=== PATIENT | male | born 1950 | race Caucasian/White ===

== ENCOUNTER 2021-10-17 09:33 | Outpatient (CLI) | payer MEDICARE, OTHER | END 2021-10-17 09:34 | disposition home or self-care (01) | LOC: MADRAD 09:33 | PROVIDERS: ATTEND Physician Assistant | DX: S69.91XA Unspecified injury of right wrist, hand and finger(s), initial encounter (principal); M19.041 Primary osteoarthritis, right hand; M89.9 Disorder of bone, unspecified; M34.9 Systemic sclerosis, unspecified ==

== ENCOUNTER 2022-12-27 19:35 | Emergency (ER) | payer MEDICARE ==
[2022-12-27] MEDS ORDERED: cloNIDine 0.1 MG TAB ONE ×2 (20:28→21:23)
== END 2022-12-27 21:44 | disposition home or self-care (01) ==
LOC: MADERS 19:35
DX: I10 Essential (primary) hypertension (principal)
CPT/HCPCS: 99283

== ENCOUNTER 2023-11-11 09:27 | Emergency (ER) | payer MEDICARE ==
[~2023-11-11 09:27] MED LIST: Iopamidol 370 76% 100 ML VIAL ONE
[2023-11-11] MEDS ORDERED: Prochlorperazine 10 MG/2 ML VIAL ONE (10:09)
[2023-11-11] MEDS ORDERED: Meclizine HCl 25 MG TAB ONE (10:09)
[2023-11-11] MEDS ORDERED: Lactated Ringer's 1,000 ML ONE (10:09)
[2023-11-11 10:20] LABS: INR-International Normal Ratio 1.1; PTT 25.8 sec (22.9-36.1); Prothrombin Time 14.3 sec (12.0-14.7)
[2023-11-11 10:28] LABS: ALT (SGPT) 10 U/L (8-55); AST (SGOT) 12 U/L (5-34); Albumin 3.4 g/dL (3.4-4.8); Alkaline Phosphatase 93 U/L (40-110); Anion Gap 14 mmol/L (10-20); BUN (Urea Nitrogen) 26 mg/dL (8.4-25.7); Bilirubin, Total 0.4 mg/dL (0.2-1.2); CK (CPK) 76 U/L (30-200); Calc. Creatinine Clearance 0 mL/min (70-130); Calcium 8.5 mg/dL (7.8-10.44); Carbon Dioxide 21 mmol/L (23-31); Chloride 109 mmol/L (98-107); Estimated GFR 43; Globulin 2.8 g/dL (2.4-3.5); Glucose 138 mg/dL (83-110); Hematocrit 43.2 % (42.0-52.0); Hemoglobin 13.7 g/dL (14.0-18.0); Mean Corpuscular HGB CONC 31.8 g/dL (32.0-36.0); Mean Corpuscular Hemoglobin 30.9 pg (27.0-31.0); Mean Corpuscular Volume 97.1 fl (78.0-98.0); Mean Platelet Volume 7.8 fL (7.4-10.4); Platelet Count 206 10x3/uL (130-400); Potassium 4.1 mmol/L (3.5-5.1); Protein, Total 6.2 g/dL (5.8-8.1); RBC Distribution Width 12.2 % (11.5-14.5); Red Blood Cell (RBC) Count 4.45 mill/uL (4.70-6.10); Sodium 140 mmol/L (136-145); White Blood Cell (WBC) Count 7.9 10x3/uL (4.8-10.8)
[2023-11-11 10:29] LABS: Band 2 % (5-11); Eosinophils 2 % (0-10); Lymphocytes 14 % (21-51); MDiff Complete? YES; Manual Diff?? YES; Monocytes 5 % (0-10); Neutrophil 77 % (42-75); RBC Morph Comment Within Normal Limits
[2023-11-11 10:30] LABS: Platelet Adequacy Comment Appears Adequate
[2023-11-11 10:31] LABS: Troponin I Less than 0.010 ng/mL (< 0.028)
[2023-11-11] MEDS ORDERED: Aspirin Chewable 81 MG TAB ONE (10:46)
[2023-11-11] MEDS ORDERED: Lorazepam 2 MG/ML VIAL ONE ×2 (10:49→15:21)
== END 2023-11-11 17:07 | disposition short-term general hospital (02) ==
LOC: MADERS 09:27
DX: R42 Dizziness and giddiness (principal); I48.91 Unspecified atrial fibrillation; I12.9 Hypertensive chronic kidney disease with stage 1 through stage 4 chronic kidney disease, or unspecified chronic kidney disease; N18.9 Chronic kidney disease, unspecified; R11.10 Vomiting, unspecified
CPT/HCPCS: 0042T; 36416; 70450; 71045; 80053; 82550; 84484; 85025; 85610; 85730; 93005; 94760; 96361; 96374; 96375; 96376; 36415-59; J0780; J2060; J7120; Q9967

== ENCOUNTER 2024-11-27 15:49 | Emergency (ER) | payer OTHER ==
[2024-11-27] MEDS ORDERED: Acetaminophen 500 MG TAB ONE (16:09)
== END 2024-11-27 17:24 | disposition home or self-care (01) ==
LOC: MADERS 15:49
DX: S39.012A Strain of muscle, fascia and tendon of lower back, initial encounter (principal); M43.06 Spondylolysis, lumbar region; I10 Essential (primary) hypertension; I48.91 Unspecified atrial fibrillation; I25.2 Old myocardial infarction; I11.0 Hypertensive heart disease with heart failure; I50.9 Heart failure, unspecified; I25.10 Atherosclerotic heart disease of native coronary artery without angina pectoris; Z86.73 Personal history of transient ischemic attack (TIA), and cerebral infarction without residual deficits; W19.XXXA Unspecified fall, initial encounter
CPT/HCPCS: 72131